=== PATIENT | female | born 1950 | race Caucasian/White ===

== ENCOUNTER 2019-09-25 11:56 | Inpatient (IN) | payer BC, OTHER ==
[~2019-09-25] VITALS: Ht 162.6 cm; Wt 52.2 kg
[2019-09-25] VITALS (15 sets, daily range): BP systolic 124–139; BP diastolic 58–92
--- NOTE | 2019-09-25 12:01 | NUR ---
DR SINGLETON AT BEDSIDE FOR EVAL.
[2019-09-25 12:23] LABS: BASOPHILS % (AUTO) 0.1 % (0.0-2.0); HEMATOCRIT 32 % (33-45); HEMOGLOBIN 10.6 g/dL (11.5-14.8); LYMPHOCYTES # (AUTO) 0.6 /CMM (0.8-4.8); LYMPHOCYTES % (AUTO) 3.7 % (20.0-44.0); MEAN CORPUSCULAR HGB CONC 33 g/dl (31.0-36.0); MEAN CORPUSCULAR VOLUME 97 fL (82-100); MONOCYTES # (AUTO) 0.4 /CMM (0.1-1.30); MONOCYTES % (AUTO) 2.6 % (2.0-12.0); NEUTROPHILS # (AUTO) 16.2 /CMM (1.8-8.9); NEUTROPHILS % (AUTO) 93.6 % (43.0-81.0); PLATELET COUNT (AUTO) 592 /CMM (150-450); RED BLOOD CELL COUNT(AUTO) 3.31 MIL/uL (4.0-5.2); WHITE BLOOD COUNT (AUTO) 17.3 K/uL (4.3-11.0)
--- NOTE | 2019-09-25 12:28 | NUR ---
PT TO RADIOLOGY FOR HEAD CT SCAN VIA [facility].
[2019-09-25 12:30] LABS: CALCIUM, SERUM 9.4 mg/dL (8.5-10.1); CREATININE 1.7 mg/dL (0.6-1.3); POTASSIUM 3.9 mmol/L (3.5-5.1)
[2019-09-25] MEDS ORDERED: IV NS 0.9% 500 ML IV ONE (12:30)
[2019-09-25 12:45] LABS: ALBUMIN 3.2 g/dL (3.4-5.0); BILIRUBIN,DIRECT 0.1 mg/dL (0.0-0.2); BILIRUBIN,TOTAL 0.3 mg/dL (0.2-1.0); TOTAL PROTEIN, SERUM 7.2 g/dL (6.4-8.2)
[2019-09-25 12:57] LABS: ACETAMINOPHEN 0 ug/ml (10-30); ALCOHOL, BLOOD < 3 mg/dL (0-0); SALICYLATE 1.6 mg/dL (2.8-20.0)
[2019-09-25] MEDS ORDERED: CEFTRIAXONE 1GM BAG (ER ONLY) 50 ML IV ONE (12:58)
--- NOTE | 2019-09-25 12:58 | NUR ---
SUBMITTED MOVE SHEET TO ADMITTING AND CALLED FOR YARIEL BED.
[2019-09-25] MEDS ORDERED: IV NS 0.9% 1,000 ML IV ONE (13:00)
[2019-09-25] MEDS ORDERED: VANCOMYCIN 1 GM in IV D5W 250 ML IV ONE (13:00)
[2019-09-25] MEDS ORDERED: CEFTRIAXONE 1GM BAG (ER ONLY) 1 GM/50 ML PIGGYBACK IV ONE (13:00)
[2019-09-25 13:02] LABS: APPEARANCE,URINE Clear (CLEAR); BILIRUBIN,URINE Negative (NEGATIVE); BLOOD, URINE Trace-lysed Ery/uL (NEGATIVE); COLOR,URINE Yellow (YELLOW); KETONES,URINE Negative (NEGATIVE); LEUKOCYTE ESTERASE ,URINE Negative (NEGATIVE); NITRITE, URINE Negative (NEGATIVE); PH,URINE 5.5 (5.0-8.0); PROTEIN,URINE Trace mg/dl (NEGATIVE); UGLUCOSE Negative (NEGATIVE); UROBILINOGEN,URINE 0.2 EU/dL (0.2)
[2019-09-25 13:03] LABS: BACTERIA,URINE Few /HPF (None Seen); SQUAMOUS EPITHELIAL CELL,UR Few /HPF (None Seen)
--- NOTE | 2019-09-25 13:44 | NUR ---
REPORT GIVEN TO ALBERTA CHA. PT AWAITING TRANSFER TO FLOOR.
[2019-09-25] MEDS ORDERED: DICY10CA13 PO (13:53)
[2019-09-25] MEDS ORDERED: GABA800T11 PO (13:53)
[2019-09-25] MEDS ORDERED: LISI-607 PO (13:53)
[2019-09-25] MEDS ORDERED: ZINC50TA69 PO (13:53)
[2019-09-25] MEDS ORDERED: ALPR0.5T8 PO (13:53)
[2019-09-25] MEDS ORDERED: HYDR200T4 PO (13:53)
[2019-09-25] MEDS ORDERED: GABA-534 PO (13:53)
[2019-09-25] MEDS ORDERED: HYOS0.3738 PO (13:53)
[2019-09-25] MEDS ORDERED: OMEP20TA20 PO (13:53)
[2019-09-25] MEDS ORDERED: FOLI0.4T2 PO (13:53)
[2019-09-25] MEDS ORDERED: LEVO100T9 PO (13:53)
[2019-09-25] MEDS ORDERED: METH2.5T PO (13:53)
[2019-09-25] MEDS ORDERED: CALC-7 PO (13:53)
[2019-09-25] MEDS ORDERED: LOVA40TA2 PO (13:53)
[2019-09-25] MEDS ORDERED: Z GUARD REMEDY 2 OZ OINT TP PRN (14:00)
[2019-09-25] MEDS ORDERED: MAGNESIUM HYDROXIDE 30 ML UDC PO PRN (14:00)
[2019-09-25] MEDS ORDERED: ZOLPIDEM TARTRATE 5 MG TABLET PO PRN (14:00)
[2019-09-25] MEDS ORDERED: ACETAMINOPHEN 650 MG/SUPP.RECT RC ONE ×2 (14:00→14:11)
[2019-09-25] MEDS ORDERED: IV NS 0.9% 250 ML IV ONE (14:00)
[2019-09-25] MEDS ORDERED: ONDANSETRON HCL/PF 4 MG/2 ML VIAL IVP PRN (14:00)
[2019-09-25] MEDS ORDERED: HYDROCODONE/APAP 5/325MG 1 EACH TABLET PO PRN (14:00)
--- NOTE | 2019-09-25 14:18 | NUR ---
PT TO RADIOLOGY FOR ABDOMINAL CT SCAN VIA [facility].
[2019-09-25] MEDS ORDERED: DICYCLOMINE HCL 10 MG CAPSULE PO PRN (14:30)
[2019-09-25] MEDS ORDERED: ALPRAZOLAM 0.5 MG TABLET PO PRN (14:30)
--- NOTE | 2019-09-25 14:39 | NUR ---
REPORT GIVEN TO YANNA CHA. PT AWAITING TRANSFER TO FLOOR.
--- NOTE | 2019-09-25 14:52 | NUR ---
RECEIVED PT FROM ER TO BED 253. PT NON VERBAL, RESPONSIVE TO TOUCH AND PAINFUL STIMULI ONLY, OPENS EYES OCCASIONALLY, DOES NOT FOLLOW COMMANDS. 2 SONS BY BEDSIDE. REPORTED THEY WERE UNABLE TO REACH HER BY PHONE, DROVE TO HER APARTMENT AND FOUND HER ON THE FLOOR UNCONSCIOUS. PT ON ROOM AIR, SATURATING WELL, RESPIRATIONS EVEN AND UNLABORED, NO SIGNS OF RESPIRATORY DISTRESS NOTED. IV SITE ON RIGHT AC G20 INTACT, PATENT, NS INFUSING, NO SIGNS OF INFILTRATION NOTED. SINUS TACHY ON MONITOR HR 106. SOFT BILATERAL WRIST RESTRAINTS IN PLACE, SKIN CHECKED FOR CIRCULATION AND BILATERAL PULSES. HEAD TO TOE ASSESSMENT PERFORMED- LEFT FOREARM SKIN TEAR NOTED, PHOTO TAKEN, PLACED INTO CHART. CLEANSED SKIN TEAR WITH NS AND COVERED WOUND WITH MEPILEX. BED IN LOW POSITION, LOCKED, CALL LIGHT WITHIN REACH. WILL CONTINUE TO MONITOR CLOSELY.
[2019-09-25] MEDS: IV NS 0.9% 1,000 ML IV PRN (15:53)
[2019-09-25] MEDS ORDERED: FEE PK DOSING 1 MIN EA MC ONE (16:20)
[2019-09-25] MEDS: PANTOPRAZOLE 40 MG TABLET.DR PO SCH (16:30)
[2019-09-25] MEDS ORDERED: PIPERACILLIN /TAZOBACTAM 3.375 G in IV D5W 50 ML IV ONE ×2 (17:00→18:00)
[2019-09-25] MEDS: HYDROXYCHLOROQUINE 200 MG TABLET PO SCH (17:00)
[2019-09-25] MEDS: GABAPENTIN 300 MG CAPSULE PO SCH (17:00)
[2019-09-25] MEDS ORDERED: PIPERACILLIN /TAZOBACTAM 3.375 G in IV NS 0.9% 50 ML IV ONE (17:00)
--- NOTE | 2019-09-25 17:27 | NUR ---
ATTEMPTED MULTIPLE TIMES TO INSERT YEBOAH CATHETER, CHARGE NURSE FERNANDO SARAVIA ATTEMPTED TOO. UNSUCCESSFUL. RAJESH NOTIFIED.
[2019-09-25] MEDS: MEROPENEM 1 G in IV NS 0.9% 100 ML IV SCH (18:09)
--- NOTE | 2019-09-25 20:06 | NUR ---
BOWLING FLOOR MANAGER. INITIAL ASSESSMENT. RECEIVED THE PT REST ON THE BED, VERY LETHARGIC. NAME RESPONDING. DEPUTY CHIEF SHERIFF SHOWING S TACH. ROOM AIR SAT 99%. NO ACUTE DISTRESS NOTED. HOB ELEVATED. PT IS NPO. REGINA SOFT WRIST RESTRAINT CHECKED AND RELEASED, NO INJURY OR REDNESS NOTED. IV RT AC 20G. NS 125 ML/H. WILL CONTINUE TO MONITOR VITALS.
[2019-09-25] MEDS: HYOSCYAMINE SULFATE 0.375 MG PO SCH (21:00)
[2019-09-25] MEDS: GABAPENTIN 400 MG CAPSULE PO SCH (22:00)
[2019-09-25] MEDS ORDERED: LOVASTATIN (NON FORMULARY) 20 MG TABLET PO SCH (22:00)
[2019-09-25] MEDS: ATORVASTATIN 10 MG TABLET PO SCH (22:00)
--- NOTE | 2019-09-25 22:00 | NUR ---
COMMUNICATIONS EQUIPMENT INSTALLER. YEBOAH"S CATHETER 16 PLACED WITH OUT DIFFICULT.. CLEAR URINE DRAINING
[2019-09-26] VITALS (31 sets, daily range): BP systolic 96–154; BP diastolic 49–97
[2019-09-26] MEDS ORDERED: PIPERACILLIN /TAZOBACTAM 3.375 G in IV D5W 100 ML IV SCH ×2
[2019-09-26] MEDS: IV NS 0.9% 1,000 ML IV PRN (02:30)
--- NOTE | 2019-09-26 04:21 | NUR ---
BRANCH OFFICE ADMINISTRATOR. PT AWAKE, ALERT, FOLLOW COMMANDS. SOME TIMES FORGET FULLNESS. IV PULLED OUT. NEW IV PLACED. REGINA SOFT WRIST RESTRAINT INITIATED,IV RT HAND 20G. IV FLUIDS NS 125ML/H. HOB ELEVATED, FC PATENT. URINE DRAINING, REGINA SOFT WRIST RESTRAINT CHECKED AND RELEASED. NO INJURY OR REDNESS NOTED. WILL CONTINUE TO MONITOR VITALS.
[2019-09-26 04:30] LABS: BASOPHILS % (AUTO) 0.3 % (0.0-2.0); HEMATOCRIT 27 % (33-45); HEMOGLOBIN 8.9 g/dL (11.5-14.8); LYMPHOCYTES # (AUTO) 0.8 /CMM (0.8-4.8); MEAN CORPUSCULAR HGB CONC 34 g/dl (31.0-36.0); MEAN CORPUSCULAR VOLUME 95 fL (82-100); MONOCYTES # (AUTO) 0.6 /CMM (0.1-1.30); MONOCYTES % (AUTO) 4.3 % (2.0-12.0); NEUTROPHILS # (AUTO) 12.1 /CMM (1.8-8.9); NEUTROPHILS % (AUTO) 89.4 % (43.0-81.0); PLATELET COUNT (AUTO) 403 /CMM (150-450); WHITE BLOOD COUNT (AUTO) 13.5 K/uL (4.3-11.0)
[2019-09-26 05:08] LABS: CALCIUM, SERUM 8.1 mg/dL (8.5-10.1); CREATININE 1.1 mg/dL (0.6-1.3); MAGNESIUM 2.2 mg/dL (1.8-2.4); PHOSPHORUS 2.9 mg/dL (2.5-4.9); POTASSIUM 3.4 mmol/L (3.5-5.1)
[2019-09-26] MEDS: MEROPENEM 1 G in IV NS 0.9% 100 ML IV SCH ×2 (06:52→18:07)
[2019-09-26] MEDS ORDERED: OMEPRAZOLE 20 MG CAPSULE.DR PO SCH (07:30)
[2019-09-26] MEDS: LEVOTHYROXINE SODIUM 100 MCG TABLET PO SCH (08:03)
[2019-09-26] MEDS: FOLIC ACID 1 MG TABLET PO SCH (08:03)
[2019-09-26] MEDS: CALCIUM CARB 250MG /VITAMIN D 1 UDTAB PO SCH (08:03)
[2019-09-26] MEDS: HYDROXYCHLOROQUINE 200 MG TABLET PO SCH ×2 (08:04→17:16)
[2019-09-26] MEDS: GABAPENTIN 300 MG CAPSULE PO SCH ×3 (08:04→17:16)
[2019-09-26] MEDS: PANTOPRAZOLE 40 MG TABLET.DR PO SCH (08:04)
--- NOTE | 2019-09-26 08:18 | NUR ---
received pt from car shifter, s/p subarachnoid hemorrhage, a/o x2, follows commands, confused at times, SR, RA sat well, NPO, f/c good output, restraints on, v/s stable, no pain, pt turned and repositioned.
--- NOTE | 2019-09-26 08:29 | NUR ---
WOUND CARE CONSULT: PT PRESENTS WITH INCONTINENCE AND DRY ABRASIONS, BRUISING TO ARMS, PRESENT ON ADMISSION. RECOMMENDATIONS MADE FOR SKIN PROTECTION. DISCUSSED WITH NURSING STAFF. WILL SEE PRN. LOTT IN AGREEMENT WITH PLAN OF CARE. Addendum: 09/26/19 at 0833 by SHUN CARTER WNDNU CORRECTION: PT INCONTINENT OF STOOL. YEBOAH CATH NOTED.
[2019-09-26] MEDS ORDERED: LISINOPRIL (5MG) 5 MG TABLET PO SCH (09:00)
[2019-09-26] MEDS: HYOSCYAMINE SULFATE 0.375 MG PO SCH (09:00)
[2019-09-26 09:46] LABS: ABG BASE EXCESS -7.3 mmol/L; ABG OXYGEN SATURATION 96.1 % (92.0-98.5); ABG PCO2 17.9 mmHg (35.0-45.0); ABG PH 7.513 (7.350-7.450); ABG PO2 85.4 mmHg (75.0-100.0); AaDO2 42.9 mmHg; COHb 0.3 % (0.5-1.5); MetHb 0.5 % (0.0-1.5); O2Hb 95.3 % (94.0-97.0); SITE, ABG Right Radial; VENT MODE, BG ROOM AIR
[2019-09-26 09:48] LABS: ABG BASE EXCESS -5.4 mmol/L; ABG OXYGEN SATURATION 96.1 % (92.0-98.5); ABG PCO2 22.4 mmHg (35.0-45.0); ABG PO2 87.3 mmHg (75.0-100.0); AaDO2 35.6 mmHg; COHb 0.3 % (0.5-1.5); MetHb 0.8 % (0.0-1.5); SITE, ABG Right Brachial; VENT MODE, BG RA
[2019-09-26] MEDS ORDERED: POTASSIUM CL. PREMIX PERIPHER. 50 ML IV SCH (10:00)
[2019-09-26] MEDS ORDERED: POTASSIUM CHLORIDE 20 MEQ TAB.PRT.SR PO SCH (10:30)
[2019-09-26 12:53] LABS: APPEARANCE,URINE CLEAR (CLEAR); BILIRUBIN,URINE NEGATIVE (NEGATIVE); BLOOD, URINE MODERATE Ery/uL (NEGATIVE); COLOR,URINE YELLOW (YELLOW); KETONES,URINE 15 (NEGATIVE); LEUKOCYTE ESTERASE ,URINE NEGATIVE (NEGATIVE); NITRITE, URINE NEGATIVE (NEGATIVE); PROTEIN,URINE NEGATIVE (NEGATIVE); UGLUCOSE NEGATIVE (NEGATIVE); UROBILINOGEN,URINE 0.2 EU/dL (0.2)
[2019-09-26 14:19] LABS: BACTERIA,URINE Few /HPF (None Seen); RBC,URINE 21-50 /HPF (0-2); SQUAMOUS EPITHELIAL CELL,UR Few /HPF (None Seen); WBC,URINE 0-2 /HPF (0-3)
[2019-09-26 14:20] LABS: EOSINOPHIL,URINE None Seen
[2019-09-26] MEDS ORDERED: METHOTREXATE SODIUM (2.5MG) 2.5 MG TABLET PO SCH (14:30)
[2019-09-26 14:35] LABS: CREATININE, URINE 70.6 MG/DL (30.0-125.0); URINE TOTAL PROTEIN 51.3 mg/dL (0-11.9)
[2019-09-26] MEDS: VANCOMYCIN 1 GM in IV D5W 250 ML IV SCH (16:46)
[2019-09-26 17:08] LABS: CSF GLUCOSE 54 mg/dL (40-70)
--- NOTE | 2019-09-26 17:10 | NUR ---
abnormal CSF protein reported to Dr Cordova.
--- NOTE | 2019-09-26 17:10 | NUR ---
pt is resting in the bed, LP done by Dr Cordova, MRI of brain ordered instead on CT of head, pt is a/o x3, follows commands, RA, tolerates diet, good urine output, v/s stable, no pain.
[2019-09-26 17:14] LABS: CSF PROTEIN 147.5 mg/dL (15-45)
--- NOTE | 2019-09-26 19:10 | NUR ---
MS/RN RECEIVING NOTES PATIENT WAS RECEIVED FROM ICU ACCOMPANIED BY STARLA KING. PATIENT IN STABLE CONDITION. PATIENT IS A/O X3. NOTED WITH IV ACCESS ON RFA #20G. INTACT AND PATENT. FLUSHING WELL. ALL NEEDS ANTICIPATED CALL LIGHT WITHIN REACHED. BED LOCKED AND IN LOWEST POSITION. SAFETY MAINTAINED. WILL CONTINUE TO MONITOR CLOSELY. ENDORSED TO PM NURSE FOR ALONSO.
--- NOTE | 2019-09-26 19:25 | NUR ---
RN OPEN NOTES RECEIVED PATIENT AWAKE IN BED WITH FAMILY AT BEDSIDE. A/OX3. NO SIGNS OF DISTRESS OR DISCOMFORT. BREATHING EVEN AND UNLABORED. IV ACCESS IN RFA, PATENT AND INTACT, NO SIGNS OF REDNESS OR INFILTRATION. F/C INTACT DRAINING CLEAR YELLOW FLUID. BED IN LOW LOCKED POSITION WITH SIDE RAILS X2. BED ALARM ON. CALL LIGHT WITHIN REACH. WILL CONTINUE TO MONITOR.
[2019-09-26] MEDS: ACYCLOVIR IV 500 MG in IV D5W 100 ML IV SCH (21:10)
[2019-09-26] MEDS: HYOSCYAMINE SULFATE 0.125 MG TAB.SUBL SL SCH (21:11)
[2019-09-26] MEDS: ATORVASTATIN 10 MG TABLET PO SCH (21:11)
[2019-09-26] MEDS: GABAPENTIN 400 MG CAPSULE PO SCH (21:11)
[2019-09-27 04:00] VITALS: BP 119/69
[2019-09-27] MEDS: ACYCLOVIR IV 500 MG in IV D5W 100 ML IV SCH ×3 (05:53→21:28)
--- NOTE | 2019-09-27 06:30 | NUR ---
RN CLOSING NOTES PATIENT RESTING COMFORTABLY IN BED. A/OX3 WITH PERIODS OF FORGETFULNESS. NO SIGNS OF DISTRESS OR DISCOMFORT. BREATHING EVEN AND UNLABORED. IV ACCESS IN RFA WITH ZOVIRAX INFUSING, PATENT AND INTACT, NO SIGNS OF REDNESS OR INFILTRATION. F/C INTACT DRAINING CLEAR YELLOW FLUID. ALL NEEDS MET. NO SIGNIFICANT CHANGES THROUGH THE NIGHT. BED IN LOW LOCKED POSITION WITH SIDE RAILS X2. BED ALARM ON. CALL LIGHT WITHIN REACH. WILL ENDORSE TO AM SHIFT FOR ALONSO.
[2019-09-27 06:43] LABS: BASOPHILS % (AUTO) 0.1 % (0.0-2.0); HEMATOCRIT 27 % (33-45); LYMPHOCYTES # (AUTO) 0.9 /CMM (0.8-4.8); LYMPHOCYTES % (AUTO) 6.1 % (20.0-44.0); MEAN CORPUSCULAR HGB CONC 33 g/dl (31.0-36.0); MEAN CORPUSCULAR VOLUME 96 fL (82-100); MONOCYTES # (AUTO) 0.7 /CMM (0.1-1.30); MONOCYTES % (AUTO) 4.7 % (2.0-12.0); NEUTROPHILS # (AUTO) 13.7 /CMM (1.8-8.9); NEUTROPHILS % (AUTO) 89.1 % (43.0-81.0); PLATELET COUNT (AUTO) 438 /CMM (150-450); RED BLOOD CELL COUNT(AUTO) 2.86 MIL/uL (4.0-5.2); WHITE BLOOD COUNT (AUTO) 15.4 K/uL (4.3-11.0)
[2019-09-27 06:54] LABS: ALBUMIN 2.4 g/dL (3.4-5.0); BILIRUBIN,TOTAL 0.2 mg/dL (0.2-1.0); CALCIUM, SERUM 8.1 mg/dL (8.5-10.1); CREATININE 1.3 mg/dL (0.6-1.3); MAGNESIUM 1.8 mg/dL (1.8-2.4); PHOSPHORUS 1.9 mg/dL (2.5-4.9); POTASSIUM 3.3 mmol/L (3.5-5.1); TOTAL PROTEIN, SERUM 5.8 g/dL (6.4-8.2)
[2019-09-27] MEDS: MEROPENEM 1 G in IV NS 0.9% 100 ML IV SCH ×2 (06:56→17:42)
[2019-09-27] MEDS: GABAPENTIN 300 MG CAPSULE PO SCH ×3 (08:52→17:43)
[2019-09-27] MEDS: HYDROXYCHLOROQUINE 200 MG TABLET PO SCH ×2 (08:52→17:43)
[2019-09-27] MEDS: CALCIUM CARB 250MG /VITAMIN D 1 UDTAB PO SCH (08:52)
[2019-09-27] MEDS: FOLIC ACID 1 MG TABLET PO SCH (08:52)
[2019-09-27] MEDS: PANTOPRAZOLE 40 MG TABLET.DR PO SCH (08:52)
[2019-09-27] MEDS: LEVOTHYROXINE SODIUM 100 MCG TABLET PO SCH (08:52)
[2019-09-27] MEDS: HYOSCYAMINE SULFATE 0.125 MG TAB.SUBL SL SCH ×2 (09:00→21:31)
--- NOTE | 2019-09-27 10:30 | NUR ---
appeared alert, but some memory deficits noted, younger son just stopped by to visit, left. When asked her whether she saw the son, " nope , nobody here yet.". asked how many sons she has had, - wait for awhile before she could remember, now to MRI of brain
[2019-09-27 12:00] VITALS: BP 110/68
[2019-09-27] MEDS ORDERED: POTASSIUM CHLORIDE 20 MEQ TAB.PRT.SR PO SCH (12:00)
[2019-09-27] MEDS ORDERED: K PHOS NEUTRAL 250 MG TABLET PO ONE (12:30)
[2019-09-27] MEDS: VANCOMYCIN 1 GM in IV D5W 250 ML IV SCH (13:37)
--- NOTE | 2019-09-27 17:49 | NUR ---
RELAYED MRI RESULT TO DR. RACHEL AND ABEL MENA,SON AT BEDSIDE AND ANXIOUS ABOUT MRI RESULT,PRIMARY RN RIYA READ RESULT TO SON PER SON REQUEST,ABEL MENA SPOKE ON THE PHONE TO SON AND EXPLAIN PLAN OF CARE,FAMILY REASSURED ,PLACED PATIENT ON TELEMETRY.WILL CONTINUE TO MONITOR.
[2019-09-27] MEDS ORDERED: PHENYLEPHRINE 0.5% NASAL SPRAY 15 ML BOTTLE NS PRN (18:00)
--- NOTE | 2019-09-27 18:06 | NUR ---
PATIENT C/O CRESENCIO GAMA, AWARE ,WILL GIVE PRN MEDS.
--- NOTE | 2019-09-27 18:19 | NUR ---
PATIENT REMAIN ALERT,NO ACUTE DISTRESS,NSR, SON AT BEDSIDE CALL LIGHT AT REACH,AWAITS RADIOLY TO DO CT SCAN ORDERED,SON SIGNED CONSENT.
--- NOTE | 2019-09-27 18:22 | NUR ---
CALLED RADIOLOGY DOING ER PATIENT FIRST THEN WILL PICKUP PATIENT NEXT.WILL CONTINUE TO FOLLOW UP.
[2019-09-27 18:29] VITALS: BP 118/70
--- NOTE | 2019-09-27 19:16 | NUR ---
TELE/RN notes Patient received in bed, awake, A/O x3, denies any pain, no SOB, breathing even and unlabored. On RA, sat 98%. IV site intact, patent, Lay cath intact, draining with yellow color urine. Sinus tachy on the monitor, rate 108. awaiting CTA Head with contrast, both Sons at bed side, called Radiology, will be here soon to pickler helper patient. Safety maintained, bed at the lowest locked position. Call light within reach. Will continue to monitor as per plan of care.
[2019-09-27] MEDS ORDERED: CT SWABBABLE VALVE TRANS SET 1 EA INFUS.SET MC ONE (19:31)
[2019-09-27] MEDS ORDERED: IOHEXOL-350 100 ML VIAL IV ONE ×2 (19:31→19:39)
[2019-09-27] MEDS ORDERED: IV NS 0.9% 250 ML IV ONE (19:32)
--- NOTE | 2019-09-27 19:45 | NUR ---
Took patient for CTA head, in no acute distress. breathing even and unlabored. Nurse at bed side
[2019-09-27 20:00] VITALS: BP 128/76
--- NOTE | 2019-09-27 20:08 | NUR ---
patient back in her room, S/P CTA head, tolerated the procedure well. In no acute distress, Alert and oriented to her base line. Will continue to monitor. Son at bed side, Encouraged to drink fluids
--- NOTE | 2019-09-27 20:56 | NUR ---
CTA head results relayed to Paco Panchal and Harriet Brower with no new orders at this time, Will closely monitor patient
[2019-09-27] MEDS: GABAPENTIN 400 MG CAPSULE PO SCH (21:28)
[2019-09-27] MEDS: ATORVASTATIN 10 MG TABLET PO SCH (21:28)
[2019-09-28] VITALS: BP 98/58
[2019-09-28 04:00] VITALS: BP 140/75
--- NOTE | 2019-09-28 04:24 | NUR ---
temperature 100, oral, cooling measures initiated, Tylenol PRN given
[2019-09-28] MEDS: ACETAMINOPHEN 325 MG TABLET PO PRN (04:27)
[2019-09-28] MEDS: MEROPENEM 1 G in IV NS 0.9% 100 ML IV SCH ×2 (04:55→18:39)
[2019-09-28] MEDS: ACYCLOVIR IV 500 MG in IV D5W 100 ML IV SCH ×3 (04:55→21:00)
--- NOTE | 2019-09-28 05:06 | NUR ---
Temp went down to 98.9, at this time. Tylenol with effectiveness. Will continue to monitor
--- NOTE | 2019-09-28 07:20 | NUR ---
TELE/RN notes Patient remained in bed, awake, A/O x3, denies any pain, no SOB, breathing even and unlabored. On RA, sat 98%. IV site intact, patent, Lay cath intact, draining with yellow color urine. Sinus tachy on the monitor, rate 102. No change in ALOC noted throughout the shift. Due meds given as ordered, toelrated well. kept clean and dry. Afebrile. needs attendant. . Safety maintained, bed at the lowest locked position. Call light within reach. Endorse to AM shift nurse for ALONSO.
[2019-09-28] MEDS: PANTOPRAZOLE 40 MG TABLET.DR PO SCH (07:45)
[2019-09-28] MEDS: LEVOTHYROXINE SODIUM 100 MCG TABLET PO SCH (07:45)
[2019-09-28 08:00] VITALS: BP_SYST 124; BP_SYST 139; BP_DIAS 70; BP_DIAS 81
[2019-09-28] MEDS: FLUTICASONE PROPIONATE 16 GM BOTTLE NS SCH ×2 (08:49→17:05)
[2019-09-28] MEDS: HYOSCYAMINE SULFATE 0.125 MG TAB.SUBL SL SCH ×2 (08:50→21:00)
[2019-09-28] MEDS: CALCIUM CARB 250MG /VITAMIN D 1 UDTAB PO SCH (08:50)
[2019-09-28] MEDS: FOLIC ACID 1 MG TABLET PO SCH (08:50)
[2019-09-28] MEDS: GABAPENTIN 300 MG CAPSULE PO SCH ×3 (08:50→17:05)
[2019-09-28 08:52] LABS: CALCIUM, SERUM 7.7 mg/dL (8.5-10.1); CREATININE 1.2 mg/dL (0.6-1.3); MAGNESIUM 1.7 mg/dL (1.8-2.4); PHOSPHORUS 2.5 mg/dL (2.5-4.9); POTASSIUM 3.5 mmol/L (3.5-5.1)
[2019-09-28] MEDS: HYDROXYCHLOROQUINE 200 MG TABLET PO SCH ×2 (09:16→17:05)
[2019-09-28 10:25] LABS: BASOPHILS # (AUTO) 0.1 /CMM (0.0-0.2); BASOPHILS % (AUTO) 0.8 % (0.0-2.0); EOSINOPHILS % (AUTO) 0.2 % (0.0-6.0); HEMATOCRIT 26 % (33-45); HEMOGLOBIN 8.5 g/dL (11.5-14.8); LYMPHOCYTES # (AUTO) 1.3 /CMM (0.8-4.8); LYMPHOCYTES % (AUTO) 9.7 % (20.0-44.0); MEAN CORPUSCULAR HGB CONC 33 g/dl (31.0-36.0); MEAN CORPUSCULAR VOLUME 95 fL (82-100); MONOCYTES # (AUTO) 0.2 /CMM (0.1-1.30); MONOCYTES % (AUTO) 1.8 % (2.0-12.0); NEUTROPHILS # (AUTO) 11.8 /CMM (1.8-8.9); NEUTROPHILS % (AUTO) 87.5 % (43.0-81.0); PLATELET COUNT (AUTO) 469 /CMM (150-450); RED BLOOD CELL COUNT(AUTO) 2.75 MIL/uL (4.0-5.2); WHITE BLOOD COUNT (AUTO) 13.5 K/uL (4.3-11.0)
[2019-09-28 12:00] VITALS: BP 139/81
[2019-09-28] MEDS: Magnesium 1GM/D5W 100ML PREMIX 100 ML IV SCH ×2 (12:48→14:32)
[2019-09-28] MEDS: VANCOMYCIN 1 GM in IV D5W 250 ML IV SCH (14:34)
[2019-09-28 16:00] VITALS: BP_SYST 134; BP_DIAS 76; BP_DIAS 78
[2019-09-28] MEDS ORDERED: BISACODYL (5 MG) 5 MG TABLET.DR PO PRN (17:30)
[2019-09-28] MEDS ORDERED: LACTULOSE 10 G/15 ML UDC (PYXIS) PO PRN (18:00)
[2019-09-28] MEDS: SORBITOL SOLUTION 30 ML PO SCH (18:39)
--- NOTE | 2019-09-28 19:39 | NUR ---
TIN POURER NOTE RECEIVED PT IN STABLE CONDITION, A/O X1, NOTED IN BED. NO SIGNS OF SOB OR DISTRESS, NO C/O PAIN OR N/V. IV IN R AC # [address] YEBOAH CATH IN PLACE WITH ADEQUATE URINE DRAINING. ALL CURRENT NEEDS ATTENDED TO. BED LOW, LOCKED, UPPER RAILS UP AND CALL LIGHT WITHIN REACH. WILL CONT. TO MONITOR.
[2019-09-28 20:00] VITALS: BP 112/77
[2019-09-28] MEDS: ATORVASTATIN 10 MG TABLET PO SCH (21:00)
[2019-09-28] MEDS: GABAPENTIN 400 MG CAPSULE PO SCH (21:00)
[2019-09-29] VITALS (7 sets, daily range): BP systolic 105–134; BP diastolic 57–70
[2019-09-29] MEDS: ACYCLOVIR IV 500 MG in IV D5W 100 ML IV SCH ×3 (04:02→21:25)
[2019-09-29] MEDS: MEROPENEM 1 G in IV NS 0.9% 100 ML IV SCH ×2 (05:26→18:38)
--- NOTE | 2019-09-29 06:31 | NUR ---
CONCRETE TILE MACHINE OPERATOR NOTE PT IN STABLE CONDITION, A/O X1, NOTED IN BED. NO SIGNS OF SOB OR DISTRESS, NO C/O PAIN OR N/V. IV IN L WRIST # [address] YEBOAH CATH IN PLACE WITH ADEQUATE URINE DRAINING. ALL CURRENT NEEDS ATTENDED TO. BED LOW, LOCKED, UPPER RAILS UP AND CALL LIGHT WITHIN REACH. WILL CONT. TO MONITOR AND ENDORSE TO NEXT SHIFT FOR ALONSO.
--- NOTE | 2019-09-29 07:00 | NUR ---
CRANBERRY SORTER NOTES RECEIVED PT AWAKE IN BED WITH HOB ELEVATED. PT ON IV ON LEFT FOREARM PATENT. NO SIGNS OF INFILTRATION NO PAIN. ON YEBOAH CATHETER DRAINING LIGHT YELLOW URINE. PT IS RESPONSIVE. NO SIGNS OF DISTRESS. NO C/O PAIN OR DISCOMFORT. CALL LIGHT WITHIN REACH. BED ON LOW SETTING AND LOCKED. WILL CONTINUE TO MONITOR.
[2019-09-29 08:14] LABS: BASOPHILS % (AUTO) 0.4 % (0.0-2.0); EOSINOPHILS % (AUTO) 2.2 % (0.0-6.0); HEMATOCRIT 26 % (33-45); HEMOGLOBIN 8.6 g/dL (11.5-14.8); LYMPHOCYTES % (AUTO) 10.3 % (20.0-44.0); MEAN CORPUSCULAR HGB CONC 33 g/dl (31.0-36.0); MEAN CORPUSCULAR VOLUME 95 fL (82-100); MONOCYTES # (AUTO) 0.1 /CMM (0.1-1.30); MONOCYTES % (AUTO) 1.3 % (2.0-12.0); NEUTROPHILS # (AUTO) 8.5 /CMM (1.8-8.9); NEUTROPHILS % (AUTO) 85.8 % (43.0-81.0); PLATELET COUNT (AUTO) 497 /CMM (150-450); RED BLOOD CELL COUNT(AUTO) 2.76 MIL/uL (4.0-5.2); WHITE BLOOD COUNT (AUTO) 9.9 K/uL (4.3-11.0)
[2019-09-29 08:25] LABS: CALCIUM, SERUM 7.6 mg/dL (8.5-10.1); CREATININE 1.2 mg/dL (0.6-1.3); PHOSPHORUS 2.4 mg/dL (2.5-4.9); POTASSIUM 3.5 mmol/L (3.5-5.1)
[2019-09-29] MEDS: PANTOPRAZOLE 40 MG TABLET.DR PO SCH (10:31)
[2019-09-29] MEDS: DOCUSATE SODIUM 100 MG CAPSULE PO SCH ×2 (10:31→17:02)
[2019-09-29] MEDS: FLUTICASONE PROPIONATE 16 GM BOTTLE NS SCH ×2 (10:31→17:01)
[2019-09-29] MEDS: LEVOTHYROXINE SODIUM 100 MCG TABLET PO SCH (10:31)
[2019-09-29] MEDS: CALCIUM CARB 250MG /VITAMIN D 1 UDTAB PO SCH (10:32)
[2019-09-29] MEDS: FOLIC ACID 1 MG TABLET PO SCH (10:32)
[2019-09-29] MEDS: GABAPENTIN 300 MG CAPSULE PO SCH ×3 (10:48→17:02)
[2019-09-29] MEDS: HYDROXYCHLOROQUINE 200 MG TABLET PO SCH ×2 (10:49→17:02)
[2019-09-29] MEDS: HYOSCYAMINE SULFATE 0.125 MG TAB.SUBL SL SCH ×2 (10:54→21:23)
[2019-09-29] MEDS ORDERED: K PHOS NEUTRAL 250 MG TABLET PO ONE (11:30)
[2019-09-29] MEDS: ACETAMINOPHEN 325 MG TABLET PO PRN (11:31)
[2019-09-29] MEDS: SORBITOL SOLUTION 30 ML PO SCH (13:35)
[2019-09-29] MEDS: VANCOMYCIN 1 GM in IV D5W 250 ML IV SCH (15:02)
--- NOTE | 2019-09-29 16:30 | NUR ---
TRANSPORT TRUCK DRIVER NOTE PER PATIENT'S SON ACE, THEY TALKED TO BOOK SEWER ABOUT REMOVING THE YEBOAH CATHETER. MD AGREED. REMOVED YEBOAH CATHETER. TOLERATED WELL. OUTPUT OF 350ML. DISCONTINUE FC IN THE SYSTEM. PT NO C/O PAIN OR DISCOMFORT. WILL CONT TO MONITOR.
[2019-09-29] MEDS ORDERED: ACYC500V2 IV (19:27)
[2019-09-29] MEDS ORDERED: VANC1PLA9 IV (19:27)
--- NOTE | 2019-09-29 19:40 | NUR ---
GRAPPLE YARDER OPERATOR NOTES, RECEIVED PATIENT AWAKE IN BED A/O TO SELF, VERY FORGETFUL, BREATHING EVEN AND UNLABORED, NO SOB/ACUTE DISTRESS NOTED AT THIS TIME, DENIES PAIN OR DISCOMFORT AT THIS TIME, SITTING ON BED EATING DINNER AT THIS TIME, WITH HOB ELEVATED, NSR WITH HR 90S AT THIS TIME, IV ON LEFT FOREARM PATENT AND INTACT, TKO, NO SIGNS OF INFILTRATION NOTED AT THIS TIME, S/P YEBOAH CATHETER REMOVAL, PATIENT WANTED TO VOID AND HELP HER TO USE RESTROOM WITH ONE VOID AT THIS TIME, CALL LIGHT WITHIN REACH, BED LOCKED AND LOWEST POSITION, BED ALARM ON, EDUCATED TEXTILE CLOTHING AND FOOTWEAR MECHANIC FOR ASSISTANCE, WILL CONTINUE TO MONITOR CLOSELY.
[2019-09-29] MEDS: GABAPENTIN 400 MG CAPSULE PO SCH (21:22)
[2019-09-29] MEDS: ATORVASTATIN 10 MG TABLET PO SCH (21:22)
[2019-09-29] MEDS: LACTULOSE 10 G/15 ML UDC (PYXIS) PO SCH (21:25)
[2019-09-30] VITALS: BP 110/56
[2019-09-30] MEDS: LACTULOSE 10 G/15 ML UDC (PYXIS) PO SCH ×4 (02:21→19:24)
[2019-09-30 04:00] VITALS: BP 109/63
[2019-09-30] MEDS: ACYCLOVIR IV 500 MG in IV D5W 100 ML IV SCH ×3 (05:37→21:17)
[2019-09-30] MEDS: MEROPENEM 1 G in IV NS 0.9% 100 ML IV SCH (06:01)
[2019-09-30 06:18] LABS: BASOPHILS % (AUTO) 0.4 % (0.0-2.0); EOSINOPHILS % (AUTO) 2.4 % (0.0-6.0); HEMATOCRIT 25 % (33-45); HEMOGLOBIN 8.7 g/dL (11.5-14.8); LYMPHOCYTES # (AUTO) 1.1 /CMM (0.8-4.8); LYMPHOCYTES % (AUTO) 11.2 % (20.0-44.0); MEAN CORPUSCULAR HGB CONC 35 g/dl (31.0-36.0); MEAN CORPUSCULAR VOLUME 94 fL (82-100); MONOCYTES # (AUTO) 0.3 /CMM (0.1-1.30); MONOCYTES % (AUTO) 2.6 % (2.0-12.0); NEUTROPHILS # (AUTO) 8.5 /CMM (1.8-8.9); NEUTROPHILS % (AUTO) 83.4 % (43.0-81.0); PLATELET COUNT (AUTO) 590 /CMM (150-450); RED BLOOD CELL COUNT(AUTO) 2.69 MIL/uL (4.0-5.2); WHITE BLOOD COUNT (AUTO) 10.2 K/uL (4.3-11.0)
--- NOTE | 2019-09-30 06:46 | NUR ---
APPLICATION DEVELOPER NOTES, PATIENT SLEEPING AT THIS TIME, BREATHING EVEN AND UNLABORED, NO SOB/ACUTE DISTRESS NOTED AT THIS TIME, NO SIGNIFICANT CHANGE IN CONDITION DURING THE NIGHT, IV SITE IN LEFT WRIST PATENT AND INTACT AND ANTIBIOTIC INFUSING AT THIS TIME, BED LOCKED AND LOWEST POSITION, BED ALARM ON, WILL ENDORSE TO ONCOMING NURSE FOR CONTINUITY OF CARE.
[2019-09-30 06:48] LABS: CALCIUM, SERUM 8.2 mg/dL (8.5-10.1); CREATININE 1.2 mg/dL (0.6-1.3); MAGNESIUM 2.1 mg/dL (1.8-2.4); PHOSPHORUS 2.9 mg/dL (2.5-4.9); POTASSIUM 3.7 mmol/L (3.5-5.1)
[2019-09-30] MEDS: PANTOPRAZOLE 40 MG TABLET.DR PO SCH (07:36)
[2019-09-30] MEDS: LEVOTHYROXINE SODIUM 100 MCG TABLET PO SCH (07:36)
[2019-09-30 08:00] VITALS: BP_SYST 102; BP_SYST 104; BP_DIAS 52; BP_DIAS 55
[2019-09-30 08:06] LABS: *WEST NILE VIRUS IgG, CSF Positive (Negative)
--- NOTE | 2019-09-30 08:24 | NUR ---
RN OPENING NOTES RECEIVED PATIENT RESTING IN BED COMFORTABLY, SHE IS AOX2-3, VERBAL, AND AMBULATORY WITH ASSIST W/ UNSTEADY GAIT. SHE IS ON RA, TOLERATING WELL, NO SOB OR RESP DISTRESS. TELE MONITOR SHOWING ST. SKIN IS INTACT, LUNGS SOUND CLEAR BILATERALLY. IV SITE ON LWRSIT IS PATENT AND INTACT. SAFETY MEASURES HAVE BEEN IMPLEMENTED, CALL LIGHT IS WITHIN REACH, BED IS IN LOWEST AND LOCKED POSITION, SIDE RAILS UP X2, WILL CONTINUE TO MONITOR FOR OTHER CHANGES. SAFETY MEASURES HAVE BEEN IMPLEMENTED, CALL LIGHT IS WITHIN REACH, BED IS IN LOWEST AND LOCKED POSITION, SIDE RAILS UP X2, WILL CONTINUE TO MONITOR FOR OTHER CHANGES.
[2019-09-30] MEDS: FOLIC ACID 1 MG TABLET PO SCH (08:56)
[2019-09-30] MEDS: DOCUSATE SODIUM 100 MG CAPSULE PO SCH ×2 (08:57→17:11)
[2019-09-30] MEDS: GABAPENTIN 300 MG CAPSULE PO SCH ×3 (08:57→17:11)
[2019-09-30] MEDS: SORBITOL SOLUTION 30 ML PO SCH (08:57)
[2019-09-30] MEDS: HYOSCYAMINE SULFATE 0.125 MG TAB.SUBL SL SCH ×2 (08:57→21:17)
[2019-09-30] MEDS: CALCIUM CARB 250MG /VITAMIN D 1 UDTAB PO SCH (08:57)
[2019-09-30] MEDS: FLUTICASONE PROPIONATE 16 GM BOTTLE NS SCH ×2 (08:59→17:12)
[2019-09-30] MEDS: HYDROXYCHLOROQUINE 200 MG TABLET PO SCH ×2 (09:00→17:10)
[2019-09-30] MEDS: ACETAMINOPHEN 325 MG TABLET PO PRN (09:11)
[2019-09-30 10:07] LABS: *WEST NILE VIRUS IgM, CSF Negative (Negative)
[2019-09-30 12:00] VITALS: BP 114/66
[2019-09-30 14:07] LABS: VDRL, CSF Non Reactive (Non Rea:<1:1)
[2019-09-30 16:00] VITALS: BP 108/63
--- NOTE | 2019-09-30 19:20 | NUR ---
WIRELESS SALES ASSOCIATE NOTES, RECEIVED PATIENT AWAKE IN BED A/O TO SELF, EATING DINNER AT THIS TIME, VERY FORGETFUL, BREATHING EVEN AND UNLABORED, NO SOB/ACUTE DISTRESS NOTED AT THIS TIME, DENIES PAIN OR DISCOMFORT AT THIS TIME, WITH HOB ELEVATED, NSR WITH HR 90S AT THIS TIME, IV ON LEFT HAND PATENT AND INTACT, NO SIGNS OF INFILTRATION NOTED AT THIS TIME CALL LIGHT WITHIN REACH, BED LOCKED AND LOWEST POSITION, BED ALARM ON, EDUCATED INSIDE SALES ASSOCIATE FOR ASSISTANCE, ALL SAFETY PRECAUTIONS IN PLACED, REORIENTATION PROVIDED NEED IT, WILL CONTINUE TO MONITOR CLOSELY
--- NOTE | 2019-09-30 19:32 | NUR ---
RN OPENING NOTES PATIENT IS RESTING IN BED COMFORTABLY AT THIS TIME. SHE IS ON RA, TOLERATING WELL NO SOB OR RESP DISTRESS. PT NEEDS HAVE BEEN MET, VITAL SIGNS ARE STABLE, NO ACUTE CHANGES OCCURRED THROUGHOUT THE SHIFT. SAFETY MEASURES HAVE BEEN IMPLEMENTED, CALL LIGHT IS WITHIN REACH, BED IS IN LOWEST AND LOCKED POSITION, SIDE RAILS UP X2, PT HAS BEEN ENDORSED TO NIGHTSHIFT RN FOR ALONSO.
[2019-09-30 20:00] VITALS: BP_SYST 116; BP_SYST 120; BP_DIAS 61; BP_DIAS 82
[2019-09-30] MEDS: ATORVASTATIN 10 MG TABLET PO SCH (21:17)
[2019-09-30] MEDS: GABAPENTIN 400 MG CAPSULE PO SCH (21:18)
[2019-10-01] VITALS (7 sets, daily range): BP systolic 108–135; BP diastolic 53–77
[2019-10-01] MEDS: LACTULOSE 10 G/15 ML UDC (PYXIS) PO SCH ×4 (01:53→19:30)
[2019-10-01] MEDS: ACYCLOVIR IV 500 MG in IV D5W 100 ML IV SCH ×3 (05:18→20:33)
--- NOTE | 2019-10-01 06:50 | NUR ---
STABLEHAND NOTES, PATIENT ASLEEP, BUT AROUSES EASILY TO VERBAL STIMULI, BREATHING EVEN AND UNLABORED, NO SOB/ACUTE DISTRESS NOTED AT THIS TIME, NO SIGNIFICANT CHANGE IN CONDITION DURING THE NIGHT, IV SITE IN RIGHT WRIST PATENT AND INTACT AND ANTIBIOTIC INFUSING AT THIS TIME, BED LOCKED AND LOWEST POSITION, BED ALARM ON, 2X BM LAST NIGHT, CONTINUE ON LACTULOSE Q6HRS, WILL ENDORSE CONTINUITY OF CARE TO ONCOMING NURSE.
--- NOTE | 2019-10-01 07:20 | NUR ---
RN OPENING NOTES PATIENT ASLEEP, BUT AROUSES EASILY TO VERBAL STIMULI, BREATHING EVEN AND UNLABORED, NO SOB/ACUTE DISTRESS NOTED AT THIS TIME, PT HAS IV SITE IN RIGHT WRIST PATENT AND INTACT. BED LOCKED AND LOWEST POSITION, BED ALARM ON, WILL CONTINUE TO MONITOR.
[2019-10-01] MEDS: DOCUSATE SODIUM 100 MG CAPSULE PO SCH ×2 (08:19→17:00)
[2019-10-01] MEDS: PANTOPRAZOLE 40 MG TABLET.DR PO SCH (08:19)
[2019-10-01] MEDS: LEVOTHYROXINE SODIUM 100 MCG TABLET PO SCH (08:20)
[2019-10-01] MEDS: FOLIC ACID 1 MG TABLET PO SCH (08:20)
[2019-10-01] MEDS: HYDROXYCHLOROQUINE 200 MG TABLET PO SCH ×2 (08:20→17:22)
[2019-10-01] MEDS: CALCIUM CARB 250MG /VITAMIN D 1 UDTAB PO SCH (08:20)
[2019-10-01] MEDS: GABAPENTIN 300 MG CAPSULE PO SCH ×3 (08:20→17:22)
[2019-10-01] MEDS: SORBITOL SOLUTION 30 ML PO SCH ×3 (08:20→08:33)
[2019-10-01] MEDS: HYOSCYAMINE SULFATE 0.125 MG TAB.SUBL SL SCH ×2 (08:21→20:33)
[2019-10-01] MEDS: FLUTICASONE PROPIONATE 16 GM BOTTLE NS SCH ×2 (09:00→17:23)
[2019-10-01] MEDS: ACETAMINOPHEN 325 MG TABLET PO PRN (09:44)
--- NOTE | 2019-10-01 19:18 | NUR ---
RN CLOSING NOTES PATIENT IS AWAKE DENIES SOB AND PAIN AT THIS CURRENT TIME. PT IS A&OX2 BUT FORGETFUL. PT IS ABLE TO AMBULATE TO RESTROOM WITH ASSIST AND WALKER THAT IS BEDSIDE. PT SKIN INTACT. PT HAS IV SITE IN RIGHT WRIST PATENT AND INTACT. BED IS LOCKED AND LOWEST POSITION, BED ALARM ON, WILL ENDORSE ALONSO TO LINSEED OIL TEMPERER RN.
--- NOTE | 2019-10-01 19:44 | NUR ---
MS RN OPENING NOTE RECEIVED AMBULATING TO RESTROOM WITH WALKER, LABORER SYRUP MACHINE CALLED. A/OX2, PER REPORT PATIENT IS VERY FORGETFUL. TOLERATING ROOM AIR. RESPIRATIONS ARE EVEN AND UNLABORED. NO S/S SOB NOTED. IN NO APPARENT DISTRESS. IV ACCESS IN LEFT HAND 322 PATENT AND SALINE LOCKED. BED IS LOW AND LOCKED, HOB ELEVATED, SIDE RIALS UPX2, BED ALARM ON WHEN PATIENT CAME BACK FROM RESTROOM. CALL LIGHT WITHIN REACH. WILL CONTINUE TO MONITOR.
[2019-10-01] MEDS: ATORVASTATIN 10 MG TABLET PO SCH (21:07)
[2019-10-01] MEDS: GABAPENTIN 400 MG CAPSULE PO SCH (21:07)
[2019-10-02] VITALS: BP 113/53
[2019-10-02] MEDS: LACTULOSE 10 G/15 ML UDC (PYXIS) PO SCH ×2 (01:30→08:16)
--- NOTE | 2019-10-02 01:52 | NUR ---
MS RN NOTE DID NOT ADMINISTER CEPHULAC 20G D/T PATIENT HAVING DIARRHEA. WILL CONTINUE TO MONITOR.
[2019-10-02 04:00] VITALS: BP 112/54
[2019-10-02] MEDS: ACYCLOVIR IV 500 MG in IV D5W 100 ML IV SCH (05:32)
--- NOTE | 2019-10-02 06:17 | NUR ---
MS RN OPENING NOTE PATIENT IN BED. A/OX2-3, VERY FORGETFUL. TOLERATING ROOM AIR. RESPIRATIONS ARE EVEN AND UNLABORED. NO SOB NOTED. NO DISTRESS NOTED. IV ACCESS IN LAC#20 RUNNING TKO. BED REMAINS LOW AND LOCKED, HOB ELEVATED, SIDE RIALS UPX2, BED ALARM. CALL LIGHT WITHIN REACH. WILL ENDORSE TO NEXT SHIFT.
[2019-10-02 08:00] VITALS: BP 125/70
--- NOTE | 2019-10-02 08:00 | NUR ---
MS1/RN AM SHIFT OPENING NOTES RECEIVED PT AWAKE SITING IN BED. PT A/O 2-3 FORGETFUL, PLEASANT. DENIES ANY SYMPTOMS, NO DISTRESS OR ACUTE CHANGE OF CONDITION NOTED. ON ROOM AIR SATURATING @ 99%, RESPIRATIONS EVEN & UNLABORED, LUNG SOUNDS CLEAR. IV SITE FLUSHED, PATENT WITH NO S/S OF INFECTION, SL. PT IS COMFORTABLE, SCHEDULED AM MEDS TO BE GIVEN. CL WITHIN REACHED AND SAFETY MAINTAINED. ON GOING MONITORING.
[2019-10-02] MEDS: SORBITOL SOLUTION 30 ML PO SCH (08:16)
[2019-10-02] MEDS: FLUTICASONE PROPIONATE 16 GM BOTTLE NS SCH (08:17)
[2019-10-02] MEDS: GABAPENTIN 300 MG CAPSULE PO SCH (08:18)
[2019-10-02] MEDS: DOCUSATE SODIUM 100 MG CAPSULE PO SCH (08:18)
[2019-10-02] MEDS: LEVOTHYROXINE SODIUM 100 MCG TABLET PO SCH (08:18)
[2019-10-02] MEDS: HYOSCYAMINE SULFATE 0.125 MG TAB.SUBL SL SCH (08:18)
[2019-10-02] MEDS: PANTOPRAZOLE 40 MG TABLET.DR PO SCH (08:18)
[2019-10-02] MEDS: FOLIC ACID 1 MG TABLET PO SCH (08:18)
[2019-10-02] MEDS: CALCIUM CARB 250MG /VITAMIN D 1 UDTAB PO SCH (08:18)
[2019-10-02] MEDS: HYDROXYCHLOROQUINE 200 MG TABLET PO SCH (08:19)
--- NOTE | 2019-10-02 12:01 | NUR ---
MS1/TRAFFIC MONITOR SPECIALIST - SNF REPORT GIVEN TO IDALIA FONTENOT RN, DIANE GUZMAN. DISCHARGE INSTRUCTIONS GIVEN TO TRANSPORT PERSONNEL AND PT'S SON. DISCHARGE DOCUMENTS GIVEN TO PT'S SON & TRANSPORT PERSONNEL. IV SITE KEPT PER REQUEST OF DIANE GUZMAN RN OF IDALIA FONTENOT. ID BANDS REMOVED, PERSONAL BELONGINGS RETURNED, INVENTORY LOG SIGNED OFF. PT LEFT MS1 UNIT IN STABLE CONDITION VIA GURNEY.
== END 2019-10-02 12:00 | DRG 917 ==
LOC: ER 11:57 → TELE-TD 13:54 → ICU 14:58 → MEDSG1 09-26 19:08 → TELE1 09-27 17:42 → MEDSG1 10-01 10:09
PROVIDERS: ADMIT Nurse Practitioner Acute Care; ATTEND Nurse Practitioner Acute Care
DX: T42.4X1A Poisoning by benzodiazepines, accidental (unintentional), initial encounter (principal); S06.6X0A Traumatic subarachnoid hemorrhage without loss of consciousness, initial encounter; A41.9 Sepsis, unspecified organism; I21.4 Non-ST elevation (NSTEMI) myocardial infarction; J69.0 Pneumonitis due to inhalation of food and vomit; N17.0 Acute kidney failure with tubular necrosis; G92 Toxic encephalopathy; M62.82 Rhabdomyolysis; E87.2 Acidosis; A87.9 Viral meningitis, unspecified; E86.0 Dehydration; M19.90 Unspecified osteoarthritis, unspecified site; M06.9 Rheumatoid arthritis, unspecified; D64.9 Anemia, unspecified; E03.9 Hypothyroidism, unspecified; E78.5 Hyperlipidemia, unspecified; Z88.0 Allergy status to penicillin; N18.9 Chronic kidney disease, unspecified; R40.2433 Glasgow coma scale score 3-8, at hospital admission; K56.41 Fecal impaction; J32.9 Chronic sinusitis, unspecified; W19.XXXA Unspecified fall, initial encounter; Y93.9 Activity, unspecified; R26.81 Unsteadiness on feet; F32.9 Major depressive disorder, single episode, unspecified; Y92.009 Unspecified place in unspecified non-institutional (private) residence as the place of occurrence of the external cause; R41.3 Other amnesia; I12.9 Hypertensive chronic kidney disease with stage 1 through stage 4 chronic kidney disease, or unspecified chronic kidney disease
CPT/HCPCS: 36415; 36600; 70450-TC; 70496-TC; 70551-TC; 71045-TC; 71250-TC; 80048-TC; 80053-TC; 80061-TC; 80076-TC; 80202-TC; 80305; 81000-TC; 82550-TC; 82570-TC; 83605-TC; 83735-TC; 83935-TC; 84100-TC; 84155-TC; 84300-TC; 84484-TC; 85025-TC; 85730-TC; 86592; 86694; 86788; 86789; 87040-TC; 87070-TC; 87081-TC; 87086-TC; 88112-TC; 88305-TC; 88312-TC; 89051-TC; 93307-TC; 95819-TC; 97110-TC; 97116-TC; 97530-TC; A4216; G0378; G0480; J0133; J0696; J2185; J2543; J3370; J3475; J7030; J7050; J7060; J8610; Q9967